=== PATIENT | male | born 1975 | race Caucasian/White ===

== ENCOUNTER 2018-06-18 15:17 | Emergency (ER) | payer BC ==
[2018-06-18 15:22] VITALS: TEMP 97.7
[2018-06-18] MEDS ORDERED: METOCLOPRAMIDE 5 MG/ML 2 ML VIAL IVP STA (15:31)
[2018-06-18] MEDS ORDERED: GLUCAGON 1 MG/ML VIAL IVP STA (15:31)
[2018-06-18] MEDS ORDERED: DIAZEPAM 5 MG/ML 2 ML INJ IVP STA (16:19)
[2018-06-18] MEDS ORDERED: NITROGLYCERIN SL TABS 0.4 MG TAB SUBLINGUAL STA (16:19)
--- NOTE | 2018-06-18 16:29 | XR ---
EXAMINATION TYPE: XR soft tissue neck DATE OF EXAM: 06/18/2018 COMPARISON: None HISTORY: Pain feels like some stuck in throat TECHNIQUE: 2 view soft tissue neck FINDINGS: Prevertebral space is normal. Epiglottis appears normal. Posterior pharynx is unremarkable. No suspicious radiopaque foreign body is evident. IMPRESSION: 1. Normal soft tissue neck
[2018-06-18 16:43] VITALS: RESP 16
--- NOTE | 2018-06-18 17:24 | ED ---
General Adult HPI - General Chief complaint: Skin/Abscess/Foreign Body Stated complaint: Cannot Swallow Time Seen by Provider: 06/18/18 15:31 Source: patient, RN notes reviewed Mode of arrival: ambulatory Limitations: no limitations - History of Present Illness Initial comments: 42-year-old male presents emergency Department chief complaint of unable to swallow. Patient states that he's eating hot dog earlier this afternoon states that it felt like it stuck. Patient has been unable keep anything down since. Patient has tried multiple fluids. Patient states he had the same thing happened one week ago in [place] was given glucagon which alleviated symptoms. Patient states that her prior EGD with no acute findings. He does occasionally take omeprazole secondary to GERD symptoms. - Related Data Home Medications Medication Instructions Recorded Confirmed Losartan [Cozaar] 50 mg PO DAILY 06/18/18 06/18/18 Omeprazole Magnesium [PriLOSEC OTC] 20 mg PO DAILY PRN 06/18/18 06/18/18 Rosuvastatin [Crestor] 20 mg PO HS 06/18/18 06/18/18 Allergies Allergy/AdvReac Type Severity Reaction Status Date / Time No Known Allergies Allergy Verified 06/18/18 15:56 Review of Systems ROS Statement: Those systems with pertinent positive or pertinent negative responses have been documented in the HPI. ROS Other: All systems not noted in ROS Statement are negative. Past Medical History Past Medical History: Hyperlipidemia, Hypertension History of Any Multi-Drug Resistant Organisms: None Reported Past Surgical History: Orthopedic Surgery Past Psychological History: No Psychological Hx Reported Smoking Status: Never smoker Past Alcohol Use History: Occasional Past Drug Use History: None Reported General Exam Limitations: no limitations General appearance: alert, in no apparent distress Head exam: Present: atraumatic, normocephalic, normal inspection Eye exam: Present: normal appearance, PERRL, EOMI. Absent: scleral icterus, conjunctival injection, periorbital swelling ENT exam: Present: normal exam, normal oropharynx, mucous membranes moist, TM's normal bilaterally Neck exam: Present: normal inspection, full ROM. Absent: tenderness, meningismus, lymphadenopathy Respiratory exam: Present: normal lung sounds bilaterally. Absent: respiratory distress, wheezes, rales, rhonchi, stridor Cardiovascular Exam: Present: regular rate, normal rhythm, normal heart sounds. Absent: systolic murmur, diastolic murmur, rubs, gallop, clicks GI/Abdominal exam: Present: soft, normal bowel sounds. Absent: distended, tenderness, guarding, rebound, rigid Course Vital Signs 06/18/18 06/18/18 06/18/18 15:19 16:42 18:43 Temperature 97.7 F Pulse Rate 102 H 109 H 108 H Respiratory 18 16 16 Rate Blood Pressure 162/104 127/91 107/88 O2 Sat by Pulse 99 95 97 Oximetry - Reevaluation(s) Reevaluation #1: 06/18/18 17:23 Unable swallow anything after glucagon and Reglan Reevaluation #2: 06/18/18 17:23 Patient was given Valium, nitro. Patient attempted take a drink again unable to swallow, current vomiting. Medical Decision Making - Medical Decision Making 42-year-old male presented for difficulty swallowing. Patient had impacted food bolus. Patient's had this twice in one week. This was on alleviated with IV medications. Dr. Antoine was contacted and under team did come in and was able to retrieve foreign body. Patient will continue omeprazole as he currently takes and will follow-up in office for follow-up on biopsy. Disposition Clinical Impression: Esophageal obstruction due to food impaction Disposition: HOME SELF-CARE Condition: Stable Instructions (If sedation given, give patient instructions): Moderate Sedation (ED), Esophageal Foreign Body (ED) Additional Instructions: Please return to the Emergency Department if symptoms worsen or any other concerns. continue omeprazole as directed by Dr. Smith Is patient prescribed a controlled substance at d/c from ED?: No Referrals: Moon Cheng MD [Primary Care Provider] - 1-2 days Conrad Smith MD [STAFF PHYSICIAN] - 1-2 days Time of Disposition: 18:59
[2018-06-18] MEDS ORDERED: LIDOCAINE 1% INJ 10MG/ML (20 ML MDV) ONE (18:10)
[2018-06-18] MEDS ORDERED: PROPOFOL 10 MG/ML 20 ML VIAL IV ONE (18:10)
[2018-06-18] MEDS ORDERED: SODIUM CHLORIDE 0.9% 500 ML 500 ML IV ONE (18:15)
[2018-06-18 19:38] VITALS: BP 124/92; PULSE 87
--- NOTE | 2018-06-19 00:34 | OP ---
OPERATIVE REPORT DATE OF SERVICE: 06/18/2018. PROCEDURE: Esophagogastroduodenoscopy and biopsy and removal of esophageal foreign body. PREOPERATIVE DIAGNOSIS: Obstructive dysphagia. POSTOPERATIVE DIAGNOSES: 1. Impacted piece of meat, removed in multiple pieces with a snare. 2. Esophagitis. Biopsy obtained to rule out eosinophilic esophagitis. PREPARATION AND SEDATION: Provided by Anesthesia. BRIEF CLINICAL HISTORY: The patient is a 42-year-old male with history of chronic reflux, who presented to the emergency room with inability to swallow following eating a hot dog. The patient had a similar episode 10 days prior that resolved following administration of glucagon and did not require endoscopic intervention. This time the patient continued to feel inability to swallow including liquids and saliva despite the glucagon and other interventions in the emergency room. DESCRIPTION OF PROCEDURE: With the patient on his left lateral decubitus position and after informed consent and adequate sedation, I passed the Olympus [id number] video upper endoscope through the cricopharyngeus down the esophagus. There were secretions and small debris which was suctioned and the impacted piece of meat was seen lodged in the distal esophagus. It did not advance by gentle pressure with the endoscope. I therefore captured it with the snare and attempted to remove it by withdrawing the endoscope. Part of it broke and was removed by withdrawing the endoscope. The other part had to be captured one additional time and once it broke in 2 pieces with a snare, I was able to push the pieces by gentle pressure with the endoscope into the stomach. The esophagus showed some edema, erythema, and friability and some corrugations. There was, at the level of the GE junction, and nonobstructing stricture. I obtained a biopsy to rule out eosinophilic esophagitis. The patient was retching at that point and the procedure was terminated and I did not obtain any additional biopsies. The stomach and duodenum were inspected including the retroflex view in the cardia and no obvious abnormalities were seen. The patient tolerated the procedure well. PLAN: The patient will be maintained on PPI in b.i.d. dosing and I will see him in 1 month or so. Based on his course and biopsy results, I would consider repeat endoscopy for possible dilation or change in his medical therapy. I will keep you updated on his progress. MMODL / IJN: [id number] /
== END 2018-06-18 19:43 | disposition home or self-care (01) ==
LOC: EC 15:17
DX: T18.128A Food in esophagus causing other injury, initial encounter (principal); K22.2 Esophageal obstruction; I10 Essential (primary) hypertension; E78.5 Hyperlipidemia, unspecified; K21.0 Gastro-esophageal reflux disease with esophagitis; Z79.899 Other long term (current) drug therapy
CPT/HCPCS: 99284; 96374; 96375 ×2; 96361; 88305; 70360; 43239; 43247; J1610; J2765; J3360; J2001; J2704